=== PATIENT | male | born 1945 ===

== ENCOUNTER 2022-04-10 17:15 | Emergency (ER) | payer OTHER ==
[2022-04-10 17:40] VITALS: PULSE 62; TEMP 98.6; BMI 29.1
[2022-04-10] MEDS ORDERED: SODIUM CHLORIDE 0.9% 500 ML INFUS.BAG IV ONE ×2 (19:30→21:34)
[2022-04-10] MEDS ORDERED: ACETAMINOPHEN 1000 MG/100 ML BAG IVPB ONE (19:30)
[2022-04-10] MEDS ORDERED: ACETAMINOPHEN 500 MG TABLET (FP) PO ONE (19:44)
[2022-04-10] MEDS ORDERED: diazePAM 5 MG TABLET PO ONE (20:12)
[2022-04-10 20:33] LABS: URINE APPEARANCE CLEAR; URINE BILIRUBIN NEGATIVE (NEGATIVE); URINE COLOR YELLOW; URINE GLUCOSE (UA) NEGATIVE (NEGATIVE); URINE KETONE NEGATIVE (NEGATIVE); URINE LEUK ESTERASE NEGATIVE (NEGATIVE); URINE NITRITE NEGATIVE (NEGATIVE); URINE PROTEIN TRACE (NEGATIVE); URINE UROBILINOGEN 0.2 mg/dL (0.2-1.0)
[2022-04-10 20:41] LABS: BASO % 0.5 % (0-2.0); EOS % 4.8 % (0-4.5); HEMATOCRIT 36.9 % (35.4-49); LYMPH % 18.1 % (8-40); MCH 27.6 pg (25.7-33.7); MCHC 32.6 g/dl (32.0-35.9); MEAN CELL VOLUME 84.5 fl (80-96); MEAN PLT VOLUME 11.2 fl (7.5-11.1); MONO % 10.8 % (3.8-10.2); NEUT % 65.8 % (42.8-82.8); PLATELET COUNT 150 10^3/uL (134-434); RBC 4.36 M/mm3 (4.00-5.60); RDW 13.2 % (11.9-15.9); WHITE BLOOD COUNT 7.2 K/mm3 (4.0-10.0)
[2022-04-10 20:49] LABS: INR 0.93 (0.83-1.09); PROTHROMBIN TIME (PATIENT) 10.7 SEC (9.7-13.0)
[2022-04-10 20:52] LABS: ACTIVATED PTT 30.1 SECONDS (25.2-36.5)
[2022-04-10] MEDS ORDERED: ACETAMINOPHEN 325 MG TABLET (FP) ONE (20:54)
[2022-04-10] MEDS ORDERED: diazePAM 5 MG TABLET ONE (20:54)
[2022-04-10 20:59] LABS: CALCIUM 8.3 mg/dL (8.5-10.1)
[2022-04-10 21:00] LABS: ALBUMIN 3.6 g/dl (3.4-5.0); BLOOD UREA NITROGEN 20.4 mg/dL (7-18)
[2022-04-10 21:03] LABS: CREATININE 1.8 mg/dL (0.55-1.3)
[2022-04-10 21:04] LABS: TOT PROT 6.8 g/dl (6.4-8.2)
[2022-04-10 21:05] LABS: BILIRUBIN,TOTAL 0.8 mg/dL (0.2-1)
[2022-04-11 00:45] VITALS: BP 103/55
[2022-04-11 02:36] LABS: BLOOD UREA NITROGEN 16.3 mg/dL (7-18); CALCIUM 7.4 mg/dL (8.5-10.1)
[2022-04-11 02:39] LABS: CREATININE 1.4 mg/dL (0.55-1.3)
[2022-04-11 07:58] LABS: BLOOD UREA NITROGEN 19.4 mg/dL (7-18); CALCIUM 8.2 mg/dL (8.5-10.1); CREATININE 1.8 mg/dL (0.55-1.3)
== END 2022-04-11 02:24 | disposition home or self-care (01) ==
LOC: JER 17:15
DX: R07.9 Chest pain, unspecified (principal)
CPT/HCPCS: 0241U-QW; 36415; 71046-TC-FY; 80048; 80053; 81003; 84484; 85025; 85610; 85730; 87086; 93005; 93010; 99285-25